=== PATIENT | female | born 1985 | race African-American/Black ===

== ENCOUNTER 2016-09-23 08:40 | Emergency (ER) | payer SELFPAY ==
[~2016-09-23] VITALS: Ht 154.9 cm; Wt 64.4 kg
[2016-09-23] MEDS ORDERED: ONDANSETRON 4 MG TAB.RAPDIS SL ONE (09:00)
[2016-09-23] MEDS ORDERED: HYDROCODONE/APAP 10/325MG 1 EA TABLET PO ONE (09:00)
[2016-09-23] MEDS ORDERED: TDAP [DIPH/PERTUSSIS/TET] 0.5 ML VIAL IM ONE ×2 (09:00→09:04)
[2016-09-23] MEDS ORDERED: ONDANSETRON 4 MG TAB.RAPDIS ONE (09:03)
[2016-09-23] MEDS ORDERED: HYDROCODONE/APAP 10/325MG 1 EA TABLET ONE (09:04)
[2016-09-23 09:42] VITALS: BP 133/81
== END 2016-09-23 10:01 | disposition home or self-care (01) ==
LOC: ER 08:43
DX: S62.521B Displaced fracture of distal phalanx of right thumb, initial encounter for open fracture (principal); S61.011A Laceration without foreign body of right thumb without damage to nail, initial encounter; W23.0XXA Caught, crushed, jammed, or pinched between moving objects, initial encounter; Y93.89 Activity, other specified; Y92.89 Other specified places as the place of occurrence of the external cause; Y99.8 Other external cause status
CPT/HCPCS: 12001; 73140; 90471; 90715; 99284; A4606; A6402; A6403; Q0162; Z7610